=== PATIENT | male | born 1970 | race Caucasian/White ===

== ENCOUNTER 2017-01-02 16:16 | Emergency (ER) | payer MEDICARE ==
--- NOTE | 2017-01-02 17:33 | EDDOCDS ---
Physician Documentation [facility] Name: Wilfredo Estrada Age: 46 yrs Sex: Male : 1970 Arrival Date: 01/02/2017 Time: 16:16 Bed Triage 1 Private MD: Bautista Vieira G. Disposition: 01/02/17 17:21 Discharged to Home/Self Care. Impression: Acute nasopharyngitis [common cold]. - Condition is Stable. - Discharge Instructions: Upper Respiratory Infection, Adult, Cool Mist Vaporizers, Viral Infections, [id number]. - Medication Reconciliation, Local Pharmacy Hours form. - Follow up: Bautista Vieira; When: Call to arrange an appointment; Reason: Further diagnostic work-up, Recheck today's complaints, Continuance of care. - Problem is new. - Symptoms are unchanged. Historical: - Allergies: Bees (Anaphylaxis); - Home Meds: 1. bisoprolol-hydrochlorothiazide 5-6.25 mg oral tab 1 tab once daily 2. citalopram 20 mg Oral tab 1 tab once daily 3. famotidine 20 mg Oral tab 1 tab once daily 4. gemfibrozil 600 mg Oral tab daily 5. Januvia 100 mg oral tab 6. lisinopril 10 mg Oral tab twice a day 7. pravastatin 40 mg oral tab 8. Zetia 10 mg Oral tab - PMHx: Depression; Diabetes - NIDDM: controlled; Hypercholesterolemia; Hypertension; - PSHx: Appendectomy; - Social history: Smoking status: Patient states was never smoker of tobacco. No barriers to communication noted, The patient speaks fluent Latvian. - Family history: Not pertinent. - : The pt / caregiver states he / she is not on anticoagulants. Home medication list is obtained from the patient. - Exposure Risk Screening:: None identified. Vital Signs: 01/02 16:18 BP 165 / 95 RA Sitting (auto/lg); Pulse 124; Resp 20; Temp 97.8(T); Pulse Ox 97% on rs6 R/A; Weight 79.38 kg / 175 lbs (R); Height 5 ft. 10 in. (177.80 cm) (R); Pain 0/10; 17:28 BP 132 / 78; Pulse 120; Resp 18; Temp 101.2(O); Pulse Ox 96% on R/A; ttb 16:18 Body Mass Index 25.11 (79.38 kg, 177.80 cm) rs6 17:28 PA aware. ttb Signatures: Christian Gee PA PA btw Conner, Teresa, RN RN ttb Natalya Yeager RN RN ms18 MTDD
--- NOTE | 2017-01-02 17:33 | EDDOCDS ---
Nurse's Notes [facility] Name: Wilfredo Estrada Age: 46 yrs Sex: Male : 1970 Arrival Date: 01/02/2017 Time: 16:16 Bed Triage 1 Private MD: Bautista Vieira G. Diagnosis: Acute nasopharyngitis [common cold] Presentation: 01/02 16:21 Presenting complaint: Patient states: that he thinks he has a cold that is causing him ms18 to be SOB. Cough, nasal drainage reported from pt. Adult Sepsis Screening: The patient does not have new or worsening altered mentation. Patient's respiratory rate is less than 22. Systolic blood pressure is greater than 100. Patient has a qSOFA score of 0- Negative Sepsis Screen. Suicide/Homicide risk assessment- the patient denies having any suicidal and/or homicidal ideations and does not present with any other emotional, behavioral or mental health complaints. 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 Transition of care: patient was not received from another setting of care. 16:21 Acuity: MAI Level 3 ms18 16:21 Method Of Arrival: Walkin/Carried/Asstd ms18 16:22 Red Flag criteria, patient assessed and is suitable to finish the RCE Process. r Triage Assessment: 16:23 General: Appears in no apparent distress, comfortable, Behavior is appropriate for age, ms18 cooperative. Pain: Denies pain. HIV screening NA for this visit Offered previously. Neurological: Level of Consciousness is awake, alert, obeys commands, Oriented to person, place, time. Respiratory: Onset: The symptoms/episode began/occurred yesterday, Airway is patent Respiratory effort is even, unlabored, Respiratory pattern is regular, symmetrical, Reports cough that is. Derm: Skin is pink, warm & dry. normal. Historical: - Allergies: Bees (Anaphylaxis); - Home Meds: 1. bisoprolol-hydrochlorothiazide 5-6.25 mg oral tab 1 tab once daily 2. citalopram 20 mg Oral tab 1 tab once daily 3. famotidine 20 mg Oral tab 1 tab once daily 4. gemfibrozil 600 mg Oral tab daily 5. Januvia 100 mg oral tab 6. lisinopril 10 mg Oral tab twice a day 7. pravastatin 40 mg oral tab 8. Zetia 10 mg Oral tab - PMHx: Depression; Diabetes - NIDDM: controlled; Hypercholesterolemia; Hypertension; - PSHx: Appendectomy; - Social history: Smoking status: Patient states was never smoker of tobacco. No barriers to communication noted, The patient speaks fluent Malawian. - Family history: Not pertinent. - : The pt / caregiver states he / she is not on anticoagulants. Home medication list is obtained from the patient. - Exposure Risk Screening:: None identified. Screenin:29 Screening information is obtained from the patient. Fall risk: No risks identified. ttb Assistance ADL's: requires no assistance with activities of daily living. Abuse/DV Screen: The patient / caregiver reports he/she is: not in a situation that causes fear, pain or injury. Nutritional screening: No deficits noted. Advance Directives: Currently, there is no health care proxy. There is no active DNR order. home support is adequate. Assessment: 17:29 General: Appears in no apparent distress, well nourished, well groomed, Behavior is ttb cooperative, pleasant. Pain: Denies pain. Neurological: Level of Consciousness is awake, alert. EENT: Reports nasal congestion nasal discharge. Cardiovascular: Chest pain is denied. Respiratory: Airway is patent Respiratory effort is even, unlabored, Respiratory pattern is regular, symmetrical, Breath sounds are clear bilaterally. Reports shortness of breath on exertion the patient has mild shortness of breath Denies cough. GI: Denies nausea. Derm: Skin is normal. Vital Signs: 16:18 BP 165 / 95 RA Sitting (auto/lg); Pulse 124; Resp 20; Temp 97.8(T); Pulse Ox 97% on rs6 R/A; Weight 79.38 kg (R); Height 5 ft. 10 in. (177.80 cm) (R); Pain 0/10; 17:28 BP 132 / 78; Pulse 120; Resp 18; Temp 101.2(O); Pulse Ox 96% on R/A; ttb 16:18 Body Mass Index 25.11 (79.38 kg, 177.80 cm) rs6 17:28 PA aware. ttb Vitals: 16:18 Log In Time: January 02, 2017 at 16:18. RN notified that patient meets Red Flag rs6 criteria. ED Course: 16:18 Patient visited by Leonor Durant PCA. rs6 16:18 Bautista Vieira is Private Physician. rs6 16:18 Patient moved to Waiting rs6 16:21 Patient moved to Pre RCE jjr 16:22 Triage Initiated ms18 16:48 Patient moved to Triage 1 ms18 16:54 Patient visited by Jing Ricardo PCA. jb5 17:15 Christian Gee PA is [facility]. btw 17:15 Gennaro Garcia MD is Attending Physician. btw 17:16 Patient visited by Christina Gee PA. btw 17:20 Bautista Vieira is Referral Physician. btw 17:29 The patient / caregiver is instructed regarding the plan of care and ED course. Patient ttb has correct armband on for positive identification. 17:29 No IV's were initiated during this patient's visit. No procedures done that require ttb assistance. Order Results: There are currently no results for this order. Outcome: 17:21 Discharge ordered by Provider. btw 17:29 Discharge Assessment: Patient awake, alert and oriented x 3. No cognitive and/or ttb functional deficits noted. Patient verbalized understanding of disposition instructions. Patient awake and alert. patient administered narcotics - no. The following High Risk Discharge criteria are identified: None. Discharged to home ambulatory. Condition: good Condition: stable Condition: improved. Discharge instructions given to patient, Instructed on discharge instructions, follow up and referral plans. medication usage, diet, Demonstrated understanding of instructions, medications, use of ibuprofen and tylenol, increase fluids Pt was receptive of discharge instructions/ teaching. No special radiology studies were completed. Property :Personal belongings accompany Pt. 17:32 Patient left the ED. ttb Signatures: Jing Ricardo PCA AWNING ERECTOR jb5 Soraida Weeks RN RN Christian Petersen PA PA btw Margarita Martin RN RN ttb Natalya Yeager RN RN ms18 Leonor Durant PCA AWNING ERECTOR rs6 MTDD
--- NOTE | 2017-01-04 18:32 | EDDOCDS ---
Physician Documentation [facility] Name: Wilfredo Estrada Age: 46 yrs Sex: Male : 1970 Arrival Date: 01/02/2017 Time: 16:16 Bed Triage 1 Private MD: Bautista Vieira G. Disposition: 01/02/17 17:21 Discharged to Home/Self Care. Impression: Acute nasopharyngitis [common cold]. - Condition is Stable. - Discharge Instructions: Upper Respiratory Infection, Adult, Cool Mist Vaporizers, Viral Infections, [id number]. - Medication Reconciliation, Local Pharmacy Hours form. - Follow up: Bautista Vieira; When: Call to arrange an appointment; Reason: Further diagnostic work-up, Recheck today's complaints, Continuance of care. - Problem is new. - Symptoms are unchanged. Historical: - Allergies: Bees (Anaphylaxis); - Home Meds: 1. bisoprolol-hydrochlorothiazide 5-6.25 mg oral tab 1 tab once daily 2. citalopram 20 mg Oral tab 1 tab once daily 3. famotidine 20 mg Oral tab 1 tab once daily 4. gemfibrozil 600 mg Oral tab daily 5. Januvia 100 mg oral tab 6. lisinopril 10 mg Oral tab twice a day 7. pravastatin 40 mg oral tab 8. Zetia 10 mg Oral tab - PMHx: Depression; Diabetes - NIDDM: controlled; Hypercholesterolemia; Hypertension; - PSHx: Appendectomy; - Social history: Smoking status: Patient states was never smoker of tobacco. No barriers to communication noted, The patient speaks fluent Indonesian. - Family history: Not pertinent. - : The pt / caregiver states he / she is not on anticoagulants. Home medication list is obtained from the patient. - Exposure Risk Screening:: None identified. Vital Signs: 01/02 16:18 BP 165 / 95 RA Sitting (auto/lg); Pulse 124; Resp 20; Temp 97.8(T); Pulse Ox 97% on rs6 R/A; Weight 79.38 kg / 175 lbs (R); Height 5 ft. 10 in. (177.80 cm) (R); Pain 0/10; 17:28 BP 132 / 78; Pulse 120; Resp 18; Temp 101.2(O); Pulse Ox 96% on R/A; ttb 16:18 Body Mass Index 25.11 (79.38 kg, 177.80 cm) rs6 17:28 PA aware. ttb MDM: 17:38 Financial registration complete. zo 17:39 [facility] Payment Agreement was scanned into [employer] and attached to record. zo 01/03 10:24 T-Sheet-- Draft Copy was scanned into [employer] and attached to record. mm15 Signatures: Analia Haddad zo Christian Gee PA PA btw Conner, Teresa, RN RN ttb Hilary Raya mm15 Natalya Yeager RN RN ms18 The chart was reviewed and I authenticate all verbal orders and agree with the evaluation and treatment provided.Attachments: 01/02 17:39 [facility] Payment Agreement zo 01/03 10:24 T-Sheet-- Draft Copy mm15 Chart Complete MTDD
--- NOTE | 2017-01-04 18:32 | EDDOCDS ---
Physician Documentation [facility] Name: Wilfredo Estrada Age: 46 yrs Sex: Male : 1970 Arrival Date: 01/02/2017 Time: 16:16 Bed Triage 1 Private MD: Bautista Vieira G. Disposition: 01/02/17 17:21 Discharged to Home/Self Care. Impression: Acute nasopharyngitis [common cold]. - Condition is Stable. - Discharge Instructions: Upper Respiratory Infection, Adult, Cool Mist Vaporizers, Viral Infections, [id number]. - Medication Reconciliation, Local Pharmacy Hours form. - Follow up: Bautista Vieira; When: Call to arrange an appointment; Reason: Further diagnostic work-up, Recheck today's complaints, Continuance of care. - Problem is new. - Symptoms are unchanged. Historical: - Allergies: Bees (Anaphylaxis); - Home Meds: 1. bisoprolol-hydrochlorothiazide 5-6.25 mg oral tab 1 tab once daily 2. citalopram 20 mg Oral tab 1 tab once daily 3. famotidine 20 mg Oral tab 1 tab once daily 4. gemfibrozil 600 mg Oral tab daily 5. Januvia 100 mg oral tab 6. lisinopril 10 mg Oral tab twice a day 7. pravastatin 40 mg oral tab 8. Zetia 10 mg Oral tab - PMHx: Depression; Diabetes - NIDDM: controlled; Hypercholesterolemia; Hypertension; - PSHx: Appendectomy; - Social history: Smoking status: Patient states was never smoker of tobacco. No barriers to communication noted, The patient speaks fluent Lao. - Family history: Not pertinent. - : The pt / caregiver states he / she is not on anticoagulants. Home medication list is obtained from the patient. - Exposure Risk Screening:: None identified. Vital Signs: 01/02 16:18 BP 165 / 95 RA Sitting (auto/lg); Pulse 124; Resp 20; Temp 97.8(T); Pulse Ox 97% on rs6 R/A; Weight 79.38 kg / 175 lbs (R); Height 5 ft. 10 in. (177.80 cm) (R); Pain 0/10; 17:28 BP 132 / 78; Pulse 120; Resp 18; Temp 101.2(O); Pulse Ox 96% on R/A; ttb 16:18 Body Mass Index 25.11 (79.38 kg, 177.80 cm) rs6 17:28 PA aware. ttb MDM: 17:38 Financial registration complete. zo 17:39 [facility] Payment Agreement was scanned into [employer] and attached to record. zo 01/03 10:24 T-Sheet-- Draft Copy was scanned into [employer] and attached to record. mm15 Signatures: Analia Haddad zo Christian Gee PA PA btw Conner, Teresa, RN RN ttb Hilary Raya mm15 Natalya Yeager RN RN ms18 The chart was reviewed and I authenticate all verbal orders and agree with the evaluation and treatment provided.Attachments: 01/02 17:39 [facility] Payment Agreement zo 01/03 10:24 T-Sheet-- Draft Copy mm15 Chart Complete MTDD
--- NOTE | 2017-01-04 18:32 | EDDOCDS ---
Nurse's Notes [facility] Name: Wilfredo Estrada Age: 46 yrs Sex: Male : 1970 Arrival Date: 01/02/2017 Time: 16:16 Bed Triage 1 Private MD: Bautista Vieira G. Diagnosis: Acute nasopharyngitis [common cold] Presentation: 01/02 16:21 Presenting complaint: Patient states: that he thinks he has a cold that is causing him ms18 to be SOB. Cough, nasal drainage reported from pt. Adult Sepsis Screening: The patient does not have new or worsening altered mentation. Patient's respiratory rate is less than 22. Systolic blood pressure is greater than 100. Patient has a qSOFA score of 0- Negative Sepsis Screen. Suicide/Homicide risk assessment- the patient denies having any suicidal and/or homicidal ideations and does not present with any other emotional, behavioral or mental health complaints. 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 Transition of care: patient was not received from another setting of care. 16:21 Acuity: MAI Level 3 ms18 16:21 Method Of Arrival: Walkin/Carried/Asstd ms18 16:22 Red Flag criteria, patient assessed and is suitable to finish the RCE Process. r Triage Assessment: 16:23 General: Appears in no apparent distress, comfortable, Behavior is appropriate for age, ms18 cooperative. Pain: Denies pain. HIV screening NA for this visit Offered previously. Neurological: Level of Consciousness is awake, alert, obeys commands, Oriented to person, place, time. Respiratory: Onset: The symptoms/episode began/occurred yesterday, Airway is patent Respiratory effort is even, unlabored, Respiratory pattern is regular, symmetrical, Reports cough that is. Derm: Skin is pink, warm & dry. normal. Historical: - Allergies: Bees (Anaphylaxis); - Home Meds: 1. bisoprolol-hydrochlorothiazide 5-6.25 mg oral tab 1 tab once daily 2. citalopram 20 mg Oral tab 1 tab once daily 3. famotidine 20 mg Oral tab 1 tab once daily 4. gemfibrozil 600 mg Oral tab daily 5. Januvia 100 mg oral tab 6. lisinopril 10 mg Oral tab twice a day 7. pravastatin 40 mg oral tab 8. Zetia 10 mg Oral tab - PMHx: Depression; Diabetes - NIDDM: controlled; Hypercholesterolemia; Hypertension; - PSHx: Appendectomy; - Social history: Smoking status: Patient states was never smoker of tobacco. No barriers to communication noted, The patient speaks fluent Macedonian. - Family history: Not pertinent. - : The pt / caregiver states he / she is not on anticoagulants. Home medication list is obtained from the patient. - Exposure Risk Screening:: None identified. Screenin:29 Screening information is obtained from the patient. Fall risk: No risks identified. ttb Assistance ADL's: requires no assistance with activities of daily living. Abuse/DV Screen: The patient / caregiver reports he/she is: not in a situation that causes fear, pain or injury. Nutritional screening: No deficits noted. Advance Directives: Currently, there is no health care proxy. There is no active DNR order. home support is adequate. Assessment: 17:29 General: Appears in no apparent distress, well nourished, well groomed, Behavior is ttb cooperative, pleasant. Pain: Denies pain. Neurological: Level of Consciousness is awake, alert. EENT: Reports nasal congestion nasal discharge. Cardiovascular: Chest pain is denied. Respiratory: Airway is patent Respiratory effort is even, unlabored, Respiratory pattern is regular, symmetrical, Breath sounds are clear bilaterally. Reports shortness of breath on exertion the patient has mild shortness of breath Denies cough. GI: Denies nausea. Derm: Skin is normal. Vital Signs: 16:18 BP 165 / 95 RA Sitting (auto/lg); Pulse 124; Resp 20; Temp 97.8(T); Pulse Ox 97% on rs6 R/A; Weight 79.38 kg (R); Height 5 ft. 10 in. (177.80 cm) (R); Pain 0/10; 17:28 BP 132 / 78; Pulse 120; Resp 18; Temp 101.2(O); Pulse Ox 96% on R/A; ttb 16:18 Body Mass Index 25.11 (79.38 kg, 177.80 cm) rs6 17:28 PA aware. ttb Vitals: 16:18 Log In Time: January 02, 2017 at 16:18. RN notified that patient meets Red Flag rs6 criteria. ED Course: 16:18 Patient visited by Leonor Durant PCA. rs6 16:18 Bautista Vieira is Private Physician. rs6 16:18 Patient moved to Waiting rs6 16:21 Patient moved to Pre RCE jjr 16:22 Triage Initiated ms18 16:48 Patient moved to Triage 1 ms18 16:54 Patient visited by Jing Ricardo PCA. jb5 17:15 [facility]. btw 17:15 Genanro Garcia MD is Attending Physician. btw 17:16 Patient visited by Christian Gee PA. btw 17:20 Bautista Vieira is Referral Physician. btw 17:29 The patient / caregiver is instructed regarding the plan of care and ED course. Patient ttb has correct armband on for positive identification. 17:29 No IV's were initiated during this patient's visit. No procedures done that require ttb assistance. 17:39 [facility] Payment Agreement was scanned into [employer] and attached to record. zo 02 10:24 T-Sheet-- Draft Copy was scanned into [employer] and attached to record. mm15 Order Results: There are currently no results for this order. Outcome: 0203 17:21 Discharge ordered by Provider. btw 17:29 Discharge Assessment: Patient awake, alert and oriented x 3. No cognitive and/or ttb functional deficits noted. Patient verbalized understanding of disposition instructions. Patient awake and alert. patient administered narcotics - no. The following High Risk Discharge criteria are identified: None. Discharged to home ambulatory. Condition: good Condition: stable Condition: improved. Discharge instructions given to patient, Instructed on discharge instructions, follow up and referral plans. medication usage, diet, Demonstrated understanding of instructions, medications, use of ibuprofen and tylenol, increase fluids Pt was receptive of discharge instructions/ teaching. No special radiology studies were completed. Property :Personal belongings accompany Pt. 17:32 Patient left the ED. ttb Signatures: Jing Ricardo PCA WATCH PARTS INSPECTOR jb5 Analia Haddad Jessica, RN RN jjr Wolfenden, Brandon, PA PA btw Margarita Martin RN RN ttb Hilary Raya mm15 Natalya Yeager RN RN ms18 Leonor Durant PCA WATCH PARTS INSPECTOR rs6 Chart Complete MTDD
== END 2017-01-02 17:32 | disposition home or self-care (01) ==
LOC: M ED 16:16
DX: J00 Acute nasopharyngitis [common cold] (principal); B34.9 Viral infection, unspecified; F32.9 Major depressive disorder, single episode, unspecified; E11.9 Type 2 diabetes mellitus without complications; E78.00 Pure hypercholesterolemia, unspecified; I10 Essential (primary) hypertension; Z79.84 Long term (current) use of oral hypoglycemic drugs; Z79.899 Other long term (current) drug therapy; Z91.030 Bee allergy status

== ENCOUNTER 2017-07-22 09:53 | Emergency (ER) | payer MEDICARE, MEDICAID ==
[~2017-07-22] VITALS: Ht 177.8 cm; Wt 81.5 kg
[2017-07-22] MEDS ORDERED: METFORMIN (10:12)
[2017-07-22] MEDS ORDERED: ZETI10TA30 PO (10:12)
[2017-07-22] MEDS ORDERED: JANU100T PO (10:12)
[2017-07-22] MEDS ORDERED: LISI10TA4 PO (10:12)
[2017-07-22] MEDS ORDERED: CITA20TA4 PO (10:12)
[2017-07-22] MEDS ORDERED: FAMO1TAB11 PO (10:12)
[2017-07-22] MEDS ORDERED: BISOPROLOL-HCTZ (10:12)
[2017-07-22] MEDS ORDERED: PRAV40TA2 PO (10:12)
[2017-07-22] MEDS ORDERED: GEMF600T PO (10:12)
[2017-07-22] MEDS ORDERED: AMOX875T PO (10:12)
[2017-07-22] MEDS ORDERED: CLINDAMYCIN 900 MG in APPROPRIATE DILUENT 1 EA IV ONE (10:45)
[2017-07-22] MEDS ORDERED: TETANUS/DIPHTHERIA TOX ADSORB ADULT 0.5ML SYR/VIAL (90714) IM ONE (10:45)
[2017-07-22 11:23] LABS: BASO % 0.5 % (0.0-1.0); EOS # 0.1 K/mm3 (0.0-0.50); EOS % 1.3 % (0.0-3.0); LARGE UNSTAINED CELL # 0.1 K/mm3 (0.0-0.4); LARGE UNSTAINED CELL % 1.5 % (0.0-4.0); LYMPH # 1.4 K/mm3 (1.5-4.5); MEAN CORPUSCULAR HEMOGLOBIN 30.6 pg (27.0-33.0); MEAN CORPUSCULAR HGB CONC 33.7 g/dl (32.0-36.5); MEAN CORPUSCULAR VOLUME 90.7 fl (80.0-96.0); MONO # 0.4 K/mm3 (0.0-0.8); MONO % 5.1 % (0.0-5.0); NEUTROPHILS # 5.2 K/mm3 (1.8-7.7); NEUTROPHILS % 73.6 % (36.0-66.0); PLATELET COUNT, AUTOMATED 243 k/mm3 (150-450); RED CELL DISTRIBUTION WIDTH 12.3 % (11.5-14.5)
[2017-07-22 11:41] LABS: ALBUMIN 3.6 GM/DL (3.2-5.2); ALBUMIN/GLOBULIN RATIO 0.92 (1.00-1.93); ALKALINE PHOSPHATASE 44 U/L (45-117); ALT/SGPT 23 U/L (12-78); ANION GAP 9 MEQ/L (8-16); AST/SGOT 13 U/L (15-37); BILIRUBIN,DIRECT 0.1 MG/DL (0.0-0.2); BILIRUBIN,TOTAL 0.5 MG/DL (0.2-1.0); BLOOD UREA NITROGEN 16 MG/DL (7-18); CALCIUM LEVEL 9.4 MG/DL (8.5-10.1); CARBON DIOXIDE LEVEL 27 MEQ/L (21-32); CHLORIDE LEVEL 103 MEQ/L (98-107); CREATININE FOR GFR 0.85 MG/DL (0.70-1.30); GLOMERULAR FILTRATION RATE > 60.0 (>60); GLUCOSE, FASTING 203 MG/DL (70-105); POTASSIUM SERUM 4.2 MEQ/L (3.5-5.1); SODIUM LEVEL 139 MEQ/L (136-145); TOTAL PROTEIN 7.5 GM/DL (6.4-8.2)
--- NOTE | 2017-07-22 11:41 | REP ---
Portable chest: Single view. History: Systemic inflammatory response syndrome. Comparison study: February 27, 2009. Findings: The lungs are well inflated and clear. Pleural angles are sharp. Heart size is normal. No significant bony abnormality is seen. Impression: No active disease. Signed by Kelvin Al MD 07/22/2017 11:33 A
[2017-07-22] MEDS ORDERED: ISOVUE-370 76% 100ML VIAL (Q9967) As Ordered ONE (11:59)
--- NOTE | 2017-07-22 13:36 | REP ---
CT NECK WITH CONTRAST: HISTORY: Trismus CONTRAST: Isovue 370, 75 mL. A BB was placed on the soft tissue overlying the left zygoma. The naso-, kenisha- and hypopharynx, larynx and subglottic trachea are normal in appearance. The salivary and thyroid glands are normal in size and density. Small lymph nodes less than 1 cm in size are present in the internal jugular chains, posterior triangles, submandibular and submental areas. The lung apices are clear. The visualized sinuses are clear. IMPRESSION: There is no neck mass or adenopathy. Signed by Haris Maloney MD 07/22/2017 02:04 P
[2017-07-22] MEDS ORDERED: METF500T13 PO (14:20)
[2017-07-22] MEDS ORDERED: BISO5TAB2 PO (14:20)
[2017-07-22] MEDS ORDERED: PATIENT COMMENT (14:21)
[2017-07-22 15:26] VITALS: BP 122/87
== END 2017-07-22 15:29 | disposition home or self-care (01) ==
LOC: M ED 09:53
DX: S68.621A Partial traumatic transphalangeal amputation of left index finger, initial encounter (principal); J02.9 Acute pharyngitis, unspecified; R25.2 Cramp and spasm; X58.XXXA Exposure to other specified factors, initial encounter; Y92.099 Unspecified place in other non-institutional residence as the place of occurrence of the external cause; Y93.9 Activity, unspecified; Y99.9 Unspecified external cause status; F17.200 Nicotine dependence, unspecified, uncomplicated; Z79.899 Other long term (current) drug therapy
CPT/HCPCS: 70491; 71010; 80048; 80076; 83605; 85025; 87040; 87086; 87880; 90471; 90714; 93041; 94760; 96374; 99284; Q9967

== ENCOUNTER 2019-09-14 12:22 | Emergency (ER) | payer MEDICARE, MEDICAID ==
[~2019-09-14] VITALS: Ht 177.8 cm; Wt 79.2 kg
[~2019-09-14 12:22] MED LIST: AMOX875T PO; BISO5TAB2 PO; BISOPROLOL-HCTZ; CITA20TA6 PO; FAMO1TAB11 PO; GEMF600T5 PO; JANU100T PO; LISI10TA4 PO; METF500T13 PO; METFORMIN; PATIENT COMMENT; PRAV40TA2 PO; ZETI10TA16 PO
[2019-09-14] MEDS ORDERED: AMOX500C PO (13:44)
[2019-09-14 13:53] VITALS: BP 102/69
== END 2019-09-14 13:54 | disposition home or self-care (01) ==
LOC: M ED 12:22
DX: J02.0 Streptococcal pharyngitis (principal); E11.9 Type 2 diabetes mellitus without complications; I10 Essential (primary) hypertension; E78.5 Hyperlipidemia, unspecified; Z79.84 Long term (current) use of oral hypoglycemic drugs; Z79.899 Other long term (current) drug therapy

== ENCOUNTER 2022-03-21 12:39 | Emergency (ER) | payer MEDICARE, MEDICAID ==
[~2022-03-21] VITALS: Ht 177.8 cm; Wt 84.9 kg
[~2022-03-21 12:39] MED LIST changes: +AMOX500C PO; +BISO1TAB18 PO; -BISO5TAB2 PO; +LISI10TA22 PO; -LISI10TA4 PO
[2022-03-21] MEDS ORDERED: EZET10TA21 PO (12:50)
[2022-03-21 13:31] LABS: BASO # 0.1 10^3/uL (0.0-0.2); BASO % 0.8 % (0.0-1.0); EOS # 0.1 10^3/uL (0.0-0.5); EOS % 1.9 % (0.0-3.0); HEMATOCRIT 43.5 % (42.0-52.0); HEMOGLOBIN 14.6 g/dl (13.5-17.5); LYMPH # 1.5 10^3/uL (1.5-5.0); LYMPH % 23.4 % (24.0-44.0); MEAN CORPUSCULAR HEMOGLOBIN 30.6 pg (27.0-33.0); MEAN CORPUSCULAR HGB CONC 33.6 g/dl (32.0-36.5); MEAN CORPUSCULAR VOLUME 91.2 fl (80.0-96.0); MONO # 0.6 10^3/uL (0.0-0.8); MONO % 9.1 % (2.0-8.0); NEUTROPHILS # 4.1 10^3/uL (1.5-8.5); NEUTROPHILS % 63.7 % (36.0-66.0); PLATELET COUNT, AUTOMATED 204 10^3/uL (150-450); RED BLOOD COUNT 4.77 10^6/uL (4.30-6.10); WHITE BLOOD COUNT 6.4 10^3/uL (4.0-10.0)
[2022-03-21 13:40] LABS: INR 0.82; PROTHROMBIN TIME 11.7 SECONDS (12.7-14.5)
[2022-03-21 14:08] LABS: BLOOD UREA NITROGEN 16 MG/DL (7-18); CALCIUM LEVEL 9.1 MG/DL (8.5-10.1); CARBON DIOXIDE LEVEL 27 MEQ/L (21-32); CHLORIDE LEVEL 105 MEQ/L (98-107); GLOMERULAR FILTRATION RATE > 60.0 (>56); GLUCOSE, FASTING 275 MG/DL (70-100); POTASSIUM SERUM 4.6 MEQ/L (3.5-5.1); SODIUM LEVEL 137 MEQ/L (136-145)
[2022-03-21] MEDS ORDERED: ASPI81TA26 PO (14:56)
[2022-03-21 15:14] VITALS: BP 110/61
== END 2022-03-21 15:15 | disposition home or self-care (01) ==
LOC: M ED 12:39
DX: G45.9 Transient cerebral ischemic attack, unspecified (principal); Z53.9 Procedure and treatment not carried out, unspecified reason; E11.9 Type 2 diabetes mellitus without complications; I10 Essential (primary) hypertension; E78.5 Hyperlipidemia, unspecified; K21.9 Gastro-esophageal reflux disease without esophagitis; Z79.899 Other long term (current) drug therapy

== ENCOUNTER 2025-11-14 16:04 | Emergency (ER) | payer MEDICARE, MEDICAID ==
[~2025-11-14] VITALS: Ht 177.8 cm; Wt 81.7 kg
[~2025-11-14 16:04] MED LIST changes: +ASPI81TA26 PO; +EZET10TA57 PO; +EZET10TA58 PO; -PRAV40TA2 PO; +PRAV40TA85 PO; -ZETI10TA16 PO
[2025-11-14] MEDS: DOXYCYCLINE HYCLATE 100 MG TABLET PO ONE (16:38)
[2025-11-14] MEDS: ACETAMINOPHEN 325 MG TAB PO ONE (16:38)
[2025-11-14] MEDS ORDERED: DOXY-441 PO (17:24)
[2025-11-14 17:38] VITALS: BP 124/75; TEMP 98.4; O2SAT 98
== END 2025-11-14 17:39 | disposition home or self-care (01) ==
LOC: M ED 16:04
DX: S60.122A Contusion of left index finger with damage to nail, initial encounter (principal); L03.012 Cellulitis of left finger; W26.8XXA Contact with other sharp object(s), not elsewhere classified, initial encounter; E11.9 Type 2 diabetes mellitus without complications; I10 Essential (primary) hypertension; E78.5 Hyperlipidemia, unspecified; Y92.009 Unspecified place in unspecified non-institutional (private) residence as the place of occurrence of the external cause; Y93.29 Activity, other involving ice and snow; Y99.9 Unspecified external cause status; Z79.82 Long term (current) use of aspirin; Z79.899 Other long term (current) drug therapy; Z79.2 Long term (current) use of antibiotics

== ENCOUNTER 2025-11-17 14:12 | Emergency (ER) | payer MEDICARE, MEDICAID ==
[~2025-11-17 14:12] MED LIST changes: +DOXY-441 PO
[2025-11-17] MEDS ORDERED: DOXY-441 PO (18:14)
[2025-11-17 18:18] VITALS: BP 122/79; TEMP 97.6; O2SAT 98
[2025-11-17] MEDS: DOXYCYCLINE HYCLATE 100 MG TABLET PO ONE (18:21)
== END 2025-11-17 18:28 | disposition home or self-care (01) ==
LOC: M ED 14:12
DX: Z76.0 Encounter for issue of repeat prescription (principal); E11.9 Type 2 diabetes mellitus without complications; I10 Essential (primary) hypertension; E78.5 Hyperlipidemia, unspecified; Z90.49 Acquired absence of other specified parts of digestive tract; Z79.82 Long term (current) use of aspirin; Z79.899 Other long term (current) drug therapy